=== PATIENT | male | born 1960 | race Caucasian/White ===

== ENCOUNTER 2017-02-11 14:16 | Outpatient (CLI) | payer BC ==
--- NOTE | 2017-02-11 16:17 | RAD ---
CHEST PA AND LATERAL: 02/11/17 HISTORY: 56-year-old male with dyspnea. COMPARISON: 05/06/16. FINDINGS: Heart size is normal. There is no acute pulmonary parenchymal process. There is some mild increased linear markings in the right mid chest but these are definitely improved from the 05/06/16 study. IMPRESSION: No acute intrathoracic disease. Improvement in appearance from the prior study. POS: OFF
== END 2017-02-11 14:17 | disposition home or self-care (01) ==
LOC: RAD 14:16
PROVIDERS: ATTEND Internal Medicine Pulmonary Disease
DX: R06.00 Dyspnea, unspecified (principal); R91.1 Solitary pulmonary nodule
CPT/HCPCS: 71020

== ENCOUNTER 2019-03-08 15:12 | Outpatient (CLI) | payer BC ==
--- NOTE | 2019-03-08 15:36 | RAD ---
RADIOGRAPH CHEST 2 VIEWS: DATE: 03/08/2019 HISTORY: 58-year-old male with dyspnea FINDINGS: The lungs are clear. The cardiomediastinal silhouette and hilar shadows appear normal. There is no pl eural effusion or pneumothorax. No osseous abnormality is identified. IMPRESSION: Normal
== END 2019-03-08 15:13 | disposition home or self-care (01) ==
LOC: RAD 15:12
PROVIDERS: ATTEND Internal Medicine Pulmonary Disease
DX: R06.00 Dyspnea, unspecified (principal)
CPT/HCPCS: 71046

== ENCOUNTER 2020-02-21 11:57 | Outpatient (CLI) | payer BC ==
--- NOTE | 2020-02-21 12:14 | RAD ---
CHEST 2 VIEWS: Date: 02/21/2020 HISTORY: Dyspnea. COMPARISON: Radiograph dated 03/08/2019. FINDINGS: Lungs are clear. No pneumothorax or effusion. Cardiac silhouette and mediastinal contours are within normal limits. No acute osseous abnormality. IMPRESSION: No acute intrathoracic abnormality. POS: HOME
== END 2020-02-21 11:58 | disposition home or self-care (01) ==
LOC: BICRAD 11:57
PROVIDERS: ATTEND Internal Medicine Pulmonary Disease
DX: R06.00 Dyspnea, unspecified (principal)
CPT/HCPCS: 71046

== ENCOUNTER 2021-02-07 09:45 | Outpatient (CLI) | payer BC | END 2021-02-07 09:46 | disposition home or self-care (01) | LOC: RAD 09:45 | PROVIDERS: ATTEND Internal Medicine Pulmonary Disease | DX: R06.00 Dyspnea, unspecified (principal) | CPT/HCPCS: 71046 ==

== ENCOUNTER 2022-02-06 10:56 | Outpatient (CLI) | payer BC | END 2022-02-06 10:57 | disposition home or self-care (01) | LOC: RAD 10:56 | PROVIDERS: ATTEND Internal Medicine Critical Care Medicine | DX: J44.9 Chronic obstructive pulmonary disease, unspecified (principal) | CPT/HCPCS: 71046 ==

== ENCOUNTER 2023-04-29 14:39 | Outpatient (CLI) | payer BC | END 2023-04-29 14:40 | disposition home or self-care (01) | LOC: RAD 14:39 | PROVIDERS: ATTEND Internal Medicine Critical Care Medicine | DX: R06.00 Dyspnea, unspecified (principal) | CPT/HCPCS: 71046 ==